=== PATIENT | male | born 1960 | race Caucasian/White ===

== ENCOUNTER 2016-10-11 22:33 | Emergency (ER) | payer OTHER ==
[~2016-10-11] VITALS: Ht 182.9 cm; Wt 95.3 kg
[2016-10-11] MEDS ORDERED: KEFLEX500 MG ORAL (23:41)
[2016-10-11 23:56] VITALS: BP 132/74
--- NOTE | 2016-10-12 04:10 | Emergency Room Report ---
History of Present Illness General Chief Complaint: Eye Problems Source: Patient Present Illness HPI 56-year-old male presents ED complaining of swelling below the left eye. Started this morning. The swelling to the eyelid. Denies any pain. Denies any fevers or chills. Denies any photophobia or blurry vision. Denies any discharge. No other aggravating relieving factors. Denies any other associated symptom Allergies: Coded Allergies: No Known Allergies (Unverified , 10/11/16) Patient History Past Medical History: asthma Past Surgical History: none Pertinent Family History: none Social History: Denies: alcohol use, drug use, smoking Immunizations: UTD Reviewed Nursing Documentation: PMH: Agreed, PSxH: Agreed Nursing Documentation-PMH Hx Asthma: Yes Review of Systems All Other Systems: negative except mentioned in HPI Physical Exam Vital Signs Date Time Temp Pulse Resp B/P Pulse Ox O2 Delivery O2 Flow Rate FiO2 10/11/16 22:51 98.4 61 18 132/74 98 Sp02 EP Interpretation: reviewed, normal General Appearance: no apparent distress, alert, GCS 15, non-toxic Head: normocephalic Eyes: bilateral eye PERRL, bilateral eye normal inspection ENT: normal ENT inspection Neck: normal inspection Respiratory: normal inspection, speaking full sentences Cardiovascular #1: normal inspection Gastrointestinal: normal inspection Rectal: deferred Genitourinary: no CVA tenderness Musculoskeletal: normal inspection Neurologic: alert, oriented x3, responsive, motor strength/tone normal, sensory intact, speech normal Psychiatric: normal inspection Skin: other - erythema/induration to L lower eyelid. no fluctuance or discharge Lymphatic: normal inspection Medical Decision Making Diagnostic Impression: Primary Impression: Eyelid cellulitis Qualified Codes: H00.036 - Abscess of eyelid left eye, unspecified eyelid ER Course Hospital Course 56-year-old male presents to ED with redness, swelling to L eyelid Differential diagnoses include: Cellulitis, dermatitis, insect bite, abscess Clinical course Patient placed on stretcher. After initial history, physical exam reveals a middle aged male in no acute distress. On exam there is a site for mild erythema and induration to the left lower eyelid. No fluctuance or discharge. ocular exam is unremarkable. Reassurance given Diagnosis - eyelid cellulitis stable and discharged to home with prescription for Keflex. Warm compresses. Instructed to followup with PMD. Instructed return to ED if symptoms recur or worsen Last Vital Signs Date Time Temp Pulse Resp B/P Pulse Ox O2 Delivery O2 Flow Rate FiO2 10/11/16 23:56 98.4 18 132/74 98 10/11/16 22:51 61 Status: improved Disposition: HOME, SELF-CARE Condition: Stable Scripts Cephalexin* (KEFLEX*) 500 Mg Capsule 500 MG ORAL Q6H, #28 CAP 0 Refills Prov: ARMEN DUMONT M.D. 10/11/16 Referrals: NON PHYSICIAN (PCP) Patient Instructions: Cellulitis, [id number] ARMEN DUMONT M.D. Oct 12, 2016 04:10
== END 2016-10-12 01:52 | disposition home or self-care (01) ==
LOC: EMR 23:30
DX: H00.035 Abscess of left lower eyelid (principal); J45.909 Unspecified asthma, uncomplicated
CPT/HCPCS: 99283